=== PATIENT | male | born 1945 | race Caucasian/White ===

== ENCOUNTER → 2020-05-27 | Outpatient (CLI) | payer MEDICARE ==
[~2020-05-27] MED LIST: AMLODIPINE BESY10 MG PO; COREG 12.5MG12.5 MG PO; COZAAR 25MG TAB25 MG PO; CRESTOR10 MG PO; CYANOCOBAL1000 MCG/1 INJ; ECOTRIN81 MG PO; ELIQUIS 5 MG TAB5 MG PO; ESCITALOPRAM OX10 MG PO; FLOMAX 0.4 MG0.4 MG PO; INSPRA 25 MG TA25 MG PO; JARDIANCE25 MG PO; LASIX 40 MG TAB40 MG PO; LASIX20 MG PO; NUVIGIL250 MG PO; OMEPRAZOLE40 MG PO; VENTOLIN HFA 66.7 GM INH; VIAGRA100 MG PO; ZYLOPRIM 100 M100 MG PO
[2020-05-27 10:29] LABS: HEMOGLOBIN 12.6 gm/dl (14.0-17.5); RED BLOOD COUNT 3.72 M/UL (4.20-5.50); WHITE BLOOD COUNT 7.1 K/UL (4.5-11.0)
== END ==
LOC: LAB 09:09
PROVIDERS: Internal Medicine Nephrology
DX: N18.30 Chronic kidney disease, stage 3 unspecified (principal); R80.9 Proteinuria, unspecified
CPT/HCPCS: 36415; 80048; 85027; 85610; 85730

== ENCOUNTER → 2020-05-29 | Outpatient (CLI) | payer OTHER | LOC: CT 06:13 | PROC: 0TB13ZX Excision of Left Kidney, Percutaneous Approach, Diagnostic (ICD-10-PCS; principal; 2020-05-29) | DX: D47.2 Monoclonal gammopathy (principal); N02.8 Recurrent and persistent hematuria with other morphologic changes; N26.9 Renal sclerosis, unspecified; N05.1 Unspecified nephritic syndrome with focal and segmental glomerular lesions; G47.30 Sleep apnea, unspecified; I11.0 Hypertensive heart disease with heart failure; I50.9 Heart failure, unspecified; K21.9 Gastro-esophageal reflux disease without esophagitis; E11.9 Type 2 diabetes mellitus without complications; F41.9 Anxiety disorder, unspecified | CPT/HCPCS: 77012; 82962; 88305; 88313; 88346; 88348 ==

== ENCOUNTER 2020-08-30 12:39 | Inpatient (IN) | payer MEDICARE ==
[~2020-08-30] VITALS: Ht 182.9 cm; Wt 99.8 kg
[~2020-08-30 12:39] MED LIST changes: -LASIX20 MG PO
[2020-08-30 14:42] LABS: HEMOGLOBIN 14.4 gm/dl (14.0-17.5); RED BLOOD COUNT 4.21 M/UL (4.20-5.50); WHITE BLOOD COUNT 11.5 K/UL (4.5-11.0)
[2020-08-31] MEDS ORDERED: LASIX20 MG PO (16:06)
== END 2020-08-31 16:08 | disposition home or self-care (01) | DRG 640 ==
LOC: ER1 12:39 → M/S 20:32 → CDU 20:32 → M/S 22:55
PROVIDERS: Internal Medicine; Nurse Practitioner; ADMIT Internal Medicine
DX: E87.5 Hyperkalemia (principal); N17.0 Acute kidney failure with tubular necrosis; I48.20 Chronic atrial fibrillation, unspecified; G72.0 Drug-induced myopathy; I13.0 Hypertensive heart and chronic kidney disease with heart failure and stage 1 through stage 4 chronic kidney disease, or unspecified chronic kidney disease; I50.9 Heart failure, unspecified; I25.10 Atherosclerotic heart disease of native coronary artery without angina pectoris; E11.22 Type 2 diabetes mellitus with diabetic chronic kidney disease; E11.21 Type 2 diabetes mellitus with diabetic nephropathy; Z20.822 Contact with and (suspected) exposure to COVID-19; E78.5 Hyperlipidemia, unspecified; E03.9 Hypothyroidism, unspecified; T38.0X5A Adverse effect of glucocorticoids and synthetic analogues, initial encounter; D63.1 Anemia in chronic kidney disease; N40.0 Benign prostatic hyperplasia without lower urinary tract symptoms; N18.30 Chronic kidney disease, stage 3 unspecified; E86.9 Volume depletion, unspecified; Z79.4 Long term (current) use of insulin; Z79.01 Long term (current) use of anticoagulants; Z95.0 Presence of cardiac pacemaker; Z84.1 Family history of disorders of kidney and ureter; Z79.82 Long term (current) use of aspirin; Z95.5 Presence of coronary angioplasty implant and graft
CPT/HCPCS: 36415; 71045; 72070; 80048; 80053; 81001; 82550; 82553; 82962; 83036; 83735; 83874; 83880; 84132; 84484; 85025; 89050; 93005; 99285; U0002

== ENCOUNTER → 2020-08-30 | Outpatient (CLI) | payer OTHER ==
[2020-08-30 09:41] LABS: HEMOGLOBIN 13.4 gm/dl (14.0-17.5); RED BLOOD COUNT 3.9 M/UL (4.20-5.50); WHITE BLOOD COUNT 11.1 K/UL (4.5-11.0)
== END ==
LOC: LAB 09:14
PROVIDERS: Physician Assistant Medical
DX: Z53.8 Procedure and treatment not carried out for other reasons (principal)
CPT/HCPCS: 36415; 80053; 85025

== ENCOUNTER → 2020-08-30 | Outpatient (CLI) | payer OTHER | LOC: KOH-I 09:50 | DX: Z53.8 Procedure and treatment not carried out for other reasons (principal) | CPT/HCPCS: 72070 ==